=== PATIENT | male | born 1955 | race Caucasian/White ===

== ENCOUNTER → 2018-12-12 | Day surgery (SDC) | payer BC ==
[2018-11-22 15:13] LABS: BASOPHILS % 0.8 % (0.0-1.0); EOSINOPHILS # (AUTO) 0.3 (0.0-0.4); EOSINOPHILS % 5.9 % (0.0-6.0); HEMATOCRIT 43.6 % (38.2-49.6); HEMOGLOBIN 14.5 g/dL (14.0-18.0); LYMPHOCYTES # (AUTO) 1.6 (1.0-3.2); MEAN CORPUSCULAR HEMOGLOBIN 31.5 pg (28-32); MEAN CORPUSCULAR HGB CONC 33.3 g/dL (31-35); MEAN CORPUSCULAR VOLUME 94.6 fL (81-99); MONOCYTES # (AUTO) 0.4 (0.2-0.8); MONOCYTES % 8.2 % (4.4-11.3); NEUTROPHILS # (AUTO) 2.8 (2.1-6.9); NEUTROPHILS % 53.7 % (38.7-80.0); PLATELET COUNT 204 x10e3/uL (140-360); RED BLOOD COUNT 4.61 x10e6/uL (4.3-5.7); RED CELL DISTRIBUTION WIDTH 12.5 % (11.7-14.4)
[2018-11-22 15:25] LABS: INR 0.86; PROTHROMBIN TIME 12.2 seconds (11.9-14.5)
[2018-11-22 15:26] LABS: PARTIAL THROMBOPLASTIN TIME 33.5 seconds (23.8-35.5)
[2018-11-22 15:32] LABS: ALANINE AMINOTRANSFERASE 37 IU/L (0-55); ALBUMIN 3.9 g/dL (3.5-5.0); ALBUMIN/GLOBULIN RATIO 1.3 (0.8-2.0); ALKALINE PHOSPHATASE 57 IU/L (40-150); ANION GAP 13.7 mmol/L (8-16); BLOOD UREA NITROGEN 11 mg/dL (7-26); BUN/CREATININE RATIO 13 (6-25); CALCIUM 9.2 mg/dL (8.4-10.2); CARBON DIOXIDE 25 mmol/L (22-29); CHLORIDE 101 mmol/L (98-107); CREATININE, SERUM 0.86 mg/dL (0.72-1.25); EST GLOMERULAR FILTRATION RATE > 60 ML/MIN (60-); GLUCOSE 85 mg/dL (74-118); POTASSIUM 3.7 mmol/L (3.5-5.1); SODIUM 136 mmol/L (136-145)
[~2018-12-12] MED LIST: ASPIR 8181 MG PO; CALCIUM PO; FENTANYL CITRATE/PF 100MCG/2 ML INJ ONE; FISH OIL 1,0001 EAC2 PO; LEVOTHYROXINE50 MCG PO; LIDOCAINE HCL 2% LOCAL INJ 5 ML SDV VIAL INJ ONE; MIDAZOLAM HCL 2 MG/2 ML VIAL ONE; MULTI-VITAMIN1 EACH PO; VIT C PO
[2018-12-12 14:10] VITALS: BP 127/71
--- OUTSIDE RECORDS SUMMARY | 2018-12-13 10:17 | XMS REPORT ---
Author Organization Unknown Address [address] [place] [address] Phone [phone] Care Team Providers Care Pearl Hand Name Role Phone KT BELLAMY MD 3 [phone] Allergies Code Code System Name Reaction Severity Status Onset NKDA Medications Name Status Start Date Stop Date calcium 1 TAB A DAY Active Not available levothyroxine 50 mcg tablet TAKE ONE TABLET BY MOUTH ONCE DAILY Active Not available Longs Adult Low Strength ASA 81 mg tablet,delayed release Take 1 tablet every day by oral route. Active Not available meloxicam 15 mg tablet Take 1 tablet every day by oral route as needed for 30 days. Active Not available triamcinolone acetonide 0.5 % topical ointment APPLY A THIN LAYER TO THE AFFECTED AREA(S) BY TOPICAL ROUTE 2 TIMES PER DAY FOR 14 DAYS Completed 12/21/2016 Vitamin C 1 tab a day Active Not available vitamin E 1 TAB A DAY Active Not available Problems Name Status Onset Date Source Hypothyroidism Unknown 06/13/2016 Hypothyroidism Active 06/22/2017 Procedures Date Name Performed by 06/04/2013 Colonoscopy Information not available 06/04/1996 Vasectomy Information not available 06/13/2016 Electrocardiogram [facility] [address] [place] [address] (Work Place) 12/21/2016 US, Testicle [facility] [place] [address] [facility] [address] [address] (Work Place) 06/22/2017 XR, Shoulder, 2 or More View [facility] [address] [facility] [address] [facility] [address] [place] [address] (Work Place) Lab Results Date Name Specimen Result Interpretation Description Value Range Status Address 06/22/2017 CBC W/ Auto Diff Wbc 5.48 x10*3/L 4.23-9.07 x10*3/L Final [facility]: [address] [place] Rbc 5.29 10*12/L 4.63-6.08 10*12/L Final [facility]: [address] [place] Hemoglobin 16.80 g/dL 13.70-17.50 g/dL Final [facility] [address] Hemat[facility]rit 49.5 % 40.1-51.0 % Final [facility] [address] [facility] Mcv 93.6 fL 80.0-100.[address] [facility] [address] [facility] Mch 31.8 pg 25.7-32.[address] [facility] [address] [facility] Mchc 33.9 g/dL 32.3-36.5 g/dL Final [facility] [address] [facility] RDW-SD 42.3 fL 35.1-43.[address] [facility] [address] [facility] Platelet Count 215.0 k/uL 163.0-337.0 k/uL Final [facility]: [address] [place] High Mpv 11.8 fL 7.5-11.[address] [facility]: [address] [place] Neut% 53.2 % 34.0-67.9 % Final [facility] [address] Lymph% 29.7 % 21.8-53.1 % Final [facility] [address] [facility] Mon% 8.9 % 5.3-12.2 % Final [facility] [address] [facility] High Eos% 7.7 % 0.8-7.0 % Final [facility] [address] [facility] Baso% 0.5 % 0.2-1.2 % Final [facility] [address] [facility] Neut# 2.9 x10*3/L 1.8-5.4 x10*3/L Final [facility] [address] [facility] Lymph# 1.6 x10*3/L 1.3-3.6 x10*3/L Final [facility]: [address] [place] Mon# 0.5 x10*3/L 0.3-0.8 x10*3/L Final [facility]: [address] [place] Eos# 0.42 x10*3/L 0.04-0.54 x10*3/L Final [facility]: [address] [place] Baso# 0.03 x10*3/L 0.01-0.08 x10*3/L Final [facility] [address] 06/22/2017 CMP, Serum or Plasma High Alt 59 U/L 0-55 U/L Final [facility]: [address] [place] [address] High Ast 51 U/L 5-34 U/L Final [facility]: [address] Bun 10.6 mg/dL 8.4-25.7 mg/dL Final [facility]: [address] Alk Phos 70 unit/L 40-150 unit/L Final [facility]: [address] [place] [address] Glucose 92 mg/dL 70-99 mg/dL Final [facility]: [address] Albumin 4.1 g/dL 3.5-5.0 g/dL Final [facility]: [address] Creatinine 0.95 mg/dL 0.72-1.25 mg/dL Final [facility]: [address] eGFR Non- >60 mL/min/1.73m2 >60 mL/min/1.73m2 Final [facility]: [address] Total Bilirubin 1.0 mg/dL 0.2-1.2 mg/dL Final [facility]: [address] eGFR - >60 mL/min/1.73m2 >60 mL/min/1.73m2 Final [facility]: [address] Sodium 140 mEq/L 136-145 mEq/L Final [facility]: [address] Potassium 4.7 mEq/L 3.5-5.1 mEq/L Final [facility]: [address] Chloride 102 mmol/L 98-107 mmol/L Final [facility]: [address] Total Protein 7.7 g/dL 6.4-8.3 g/dL Final [facility]: [address] Calcium 9.6 mg/dL 8.8-10.0 mg/dL Final [facility]: [address] Co2 30.3 mmol/L 23.0-31.0 mmol/L Final [facility]: [address] Anion Gap [address] [facility]: [address] [place] [address], [place] 06/22/2017 Lipid Panel, Serum Hdl 60 mg/dL 40-60 mg/dL Final [facility]: [address] Triglyceride 99 mg/dL 0-149 mg/dL Final [facility]: [address] VLDL Calc. 20 mg/dL Final [facility]: [address] cholesterol/HDL Ratio 4.1 mg/dL Final [facility]: [address] High non-HDL Cholesterol Calc. 185 mg/dL 0-160 mg/dL Final [facility]: [address] High Cholesterol 245 mg/dL 0-199 mg/dL Final [facility]: [address] High LDL Calc. 165 mg/dL 0-130 mg/dL Final [facility]: [address] 06/22/2017 TSH, Serum or Plasma Tsh 2.203 uIU/mL 0.350-4.940 uIU/mL Final [facility]: [address] 06/22/2017 PSA, Serum or Plasma PSA, Total 0.60 NG/mL <4.00 NG/mL Final [facility]: [address] 06/13/2016 CBC W/ Auto Diff Wbc 6.22 x10*3/L 2.90-10.50 x10*3/L Final [facility] [address] [facility] Rbc 4.74 10*12/L 3.61-5.21 10*12/L Final [facility] [address] [facility] Hemoglobin 14.9 g/dL 12.3-17.5 g/dL Final [facility] [address] [facility] Hematocrit 44.1 % 37.1-51.3 % Final [facility] [address] [facility] Mcv 93.0 fL 79.4-101.[address] [facility] [address] [facility] Mch 31.4 pg 26.2-34.[address] [facility] [address] [facility] Mchc 33.8 g/dL 30.2-35.6 g/dL Final [facility] [address] [facility] RDW-SD 41.7 fL 35.8-49.[address] [facility]: [address] [place] [address] Platelet Count 219.0 k/uL 118.8-347.0 k/uL Final [facility] [address] [facility] Mpv 11.5 fL 8.4-13.[address] [facility] [address] [facility] Neut% 64.3 % 39.1-76.5 % Final [facility] [address] [facility] Lymph% 24.0 % 13.8-46.8 % Final [facility] [address] [facility] Mon% 7.2 % 4.6-14.4 % Final [facility] [address] [facility] Eos% 4.200 % 0.001-7.300 % Final [facility] [address] [facility] Baso% 0.3 % 0.0-1.5 % Final [facility] [address] [facility] Neut# 4.0 x10*3/L 0.8-7.0 x10*3/L Final [facility]: [address] [facility] [place] Lymph# 1.5 x10*3/L 0.6-3.2 x10*3/L Final [facility]: [address] [facility] [place] Mon# 0.5 x10*3/L 0.2-1.0 x10*3/L Final [facility]: [address] [facility] [place] Eos# 0.26 x10*3/L 0.00-0.51 x10*3/L Final [facility]: [address] [facility] [place] Baso# 0.020 x10*3/L 0.001-0.090 x10*3/L Final [facility] [address] [facility] 06/13/2016 CMP, Serum or Plasma Alt 35.0 U/L 0.0-55.0 U/L Final [facility]: [address] Ast 29.0 U/L 5.0-34.0 U/L Final [facility]: [address] Bun 12.0 mg/dL 8.0-26.0 mg/dL Final [facility]: [address] Alk Phos 59.0 unit/L 40.0-150.0 unit/L Final [facility]: [address] Glucose 82.0 mg/dL 70.0-99.0 mg/dL Final [facility]: [address] Albumin 4.0 g/dL 3.5-5.0 g/dL Final [facility]: [address] Creatinine 0.9 mg/dL 0.7-1.3 mg/dL Final [facility]: [address] eGFR Non- >60 mL/min/1.73m2 >60.0 mL/min/1.73m2 Final [facility]: [address] Total Bilirubin 0.8 mg/dL 0.2-1.2 mg/dL Final [facility]: [address] eGFR - >60 mL/min/1.73m2 >60.0 mL/min/1.73m2 Final [facility]: [address] [place], [place] Sodium 143.0 mEq/L 137.0-144.0 mEq/L Final [facility]: [address] Potassium 4.8 mEq/L 3.5-5.0 mEq/L Final [facility]: [address] Chloride 108.0 mmol/L 101.0-110.0 mmol/L Final [facility]: [address] Total Protein 7.0 g/dL 6.4-8.3 g/dL Final [facility]: [address] Calcium 9.4 mg/dL 8.4-10.2 mg/dL Final [facility]: [address] Co2 26 mmol/L 22-31 mmol/L Final [facility]: [address] Anion Gap 9.[address] [facility]: [address] 06/13/2016 Lipid Panel, Serum High Hdl 64.0 mg/dL 40.0-60.0 mg/dL Final [facility]: [address] [place] [address] Triglyceride 66.0 mg/dL 0.0-149.0 mg/dL Final [facility]: [address] VLDL Calc. 13.2 mg/dL Final [facility]: [address] cholesterol/HDL Ratio 3.2 mg/dL Final [facility]: [address] non-HDL Cholesterol Calc. 143.0 mg/dL 0.0-160.0 mg/dL Final [facility]: [address] High Cholesterol 207.0 mg/dL 0.0-199.0 mg/dL Final [facility]: [address] LDL Calc. 129.8 mg/dL 0.0-130.0 mg/dL Final [facility]: [address] 06/13/2016 TSH, Serum or Plasma Tsh 2.2106 uIU/mL 0.3500-4.9400 uIU/mL Final [facility]: [address] [place] [address], [place] 06/13/2016 PSA, Serum or Plasma PSA, Total 0.55 NG/mL <4.00 NG/mL Final [facility]: [address] [place] [address], [place] 06/03/2015 CBC W/ Auto Diff No observation recorded. [facility]: [address], [place] Urinalysis, Dipstick Color Glucose negative [facility]: [address], [place] Color Bilirubin negative [facility]: [address], [place] Color Ketones negative [facility]: [address], [place] Color Specific [place] 1.005 [facility]: [address], [place] Color Blood negative [facility] [address], [place] Color PH 5.5 [facility]: [address], [place] Color Protein negative [facility]: [address], [place] Color Urobilinogen 0.2 [facility]: [address], [place] Color Nitrites negative [facility]: [address], [place] Color Leukocytes negative [facility]: [address], [place] Electrocardiogram No observation recorded. [facility]: [address], [place] Past Encounters 07/06/2017 Degenerative Joint Disease of Shoulder Region; Influenza Vaccination Kt Gill MD: [address] [facility], [address], [place] [address], Ph. 06/22/2017 Adult Health Examination; Hypothyroidism; Screening for Malignant Neoplasm of Prostate; Shoulder Pain; Body Mass Index 30+ - Obesity Kt Gill MD: [address] [facility], [address], [place] [address], Ph. 12/21/2016 Pain in Testicle Kt Gill MD: [address] [place] [address], Ph. 06/28/2016 Screening for Malignant Neoplasm of Colon; Elevated Blood-pressure Reading without Diagnosis of Hypertension; Atopic Dermatitis Kt Gill MD: [address] [place] [address], Ph. 06/13/2016 Adult Health Examination; Hypothyroidism; Influenza Vaccination; Immunization; Elevated Blood-pressure Reading without Diagnosis of Hypertension Kt Gill MD: [address] [place] [address], Ph. Social History Smoking Status Never Smoker Vaccine List Vaccine Type influenza, injectable, quadrivalent, preservative free 07/06/2017 influenza, seasonal, injectable 06/14/20160.5 mL influenza, unspecified formulation 05/14/2013 zoster 06/14/20160.65 mL Plan of Care Reminders Provider Appointments None recorded. Lab None recorded. Referral None recorded. Procedures None recorded. Surgeries None recorded. Imaging None recorded. Vitals 07/06/2017 10:00AM Est Patient Height Weight BMI Blood Pressure 5 ft 7.6 in 208.6 lbs 32.1 kg/m2 132/90 mm[Hg] 06/22/2017 09:30AM INTERNATIONAL ACCOUNT EXECUTIVE/EST CPX Height Weight BMI Blood Pressure 5 ft 7.6 in 205.6 lbs 31.6 kg/m2 128/97 mm[Hg] 12/21/2016 04:15PM Est Patient Height Weight BMI Blood Pressure 5 ft 7.6 in 202 lbs 31.1 kg/m2 132/80 mm[Hg] 06/28/2016 08:15AM Est Patient Height Weight BMI Blood Pressure 5 ft 7.6 in 196 lbs 30.2 kg/m2 131/92 mm[Hg] 06/13/2016 09:30AM INTERNATIONAL ACCOUNT EXECUTIVE/EST CPX Height Weight BMI Blood Pressure 5 ft 7.6 in 195 lbs 30 kg/m2 (1) 139/103 mm[Hg] (2) 136/94 mm[Hg]
--- OUTSIDE RECORDS SUMMARY | 2018-12-13 10:17 | XMS REPORT | Encounter Summary ---
Author Organization Unknown Address [address] [place] [address] Phone [phone] Care Team Providers Care Mine Administrator Supervisor Name Role Phone Dr. Kt Garner 3 [phone] Becky Ulrichsep OD 240 [phone] Reason for Visit Hypothyroidism Instructions 1. Hypothyroidism levothyroxine 50 mcg tablet TSH, serum or plasma 2. Hyperlipidemia high cholesterol: care instructions lipid panel, serum CMP, serum or plasma 3. Body mass index 30+ - obesity body mass index: care instructions learning about healthy weight 4. Immunization Adacel (Tdap Adolesn/Adult)(PF)2 Lf-(2.5-5-3-5)-5 Lf/0.5 mL IM syringe Shingrix Adjuvant Component (PF) intramuscular suspension 5. Screening for malignant neoplasm of colon colonoscopy referral fecal occult blood, stool 6. Screening for malignant neoplasm of prostate PSA, serum or plasma Discussion Note: None recorded. Plan of Care Reminders Provider Appointments Est Patient 04/04/2019 8:00AM Kt Gill MD Lab Fecal Occult Blood, Stool 10/02/2018 [facility] TSH, Serum or Plasma 10/02/2018 [facility] Lipid Panel, Serum 10/02/2018 [facility] CMP, Serum or Plasma 10/02/2018 [facility] PSA, Serum or Plasma 10/02/2018 [facility] Referral Colonoscopy Referral 10/02/2018 Procedures None recorded. Surgeries None recorded. Imaging None recorded. Medications Name Start Date calcium 1 TAB A DAY levothyroxine 50 mcg tablet TAKE ONE TABLET BY MOUTH ONCE DAILY Longs Adult Low Strength ASA 81 mg tablet,delayed release Take 1 tablet every day by oral route. Vitamin C 1 tab a day vitamin E 1 TAB A DAY Medications Administered None recorded. Vitals Height Weight BMI Blood Pressure 5 ft 7.6 in 197 lbs 30.3 kg/m2 (1) 140/96 mm[Hg] (2) 138/86 mm[Hg] Lab Results None recorded. Allergies Code Code System Name Reaction Severity Status Onset NKDA Problems Name Status Onset Date Source Hypothyroidism Active 06/22/2017 Hyperlipidemia Active 04/04/2018 Procedures Date Name Performed by 09/09/2010 Colonoscopy Information not available 06/04/1996 Vasectomy Information not available Vaccine List Vaccine Type influenza, injectable, quadrivalent, preservative free 07/06/2017 04/04/20180.5 mL influenza, seasonal, injectable 06/14/20160.5 mL influenza, unspecified formulation 05/14/2013 Tdap 10/02/20180.5 mL zoster 06/14/20160.65 mL zoster subunit 10/02/20180.5 mL Social History Smoking Status Never Smoker Past Encounters 10/02/2018 Hypothyroidism; Hyperlipidemia; Body Mass Index 30+ - Obesity; Immunization; Screening for Malignant Neoplasm of Colon; Screening for Malignant Neoplasm of Prostate Kt Gill MD: [address] [place] [address], Ph. History of Present Illness Care Management - Acquired Hypothyroidism Reported By: Patient Care Management: Prognosis: expected outcome: stabilize. Diagnosis Summary: hypothyroidism of unknown etiology. Medication Education: understands administration, understands effect of concurrent medications, understands missed doses, understands consequences of noncompliance Interim History: Associated Symptoms: no abnormal weight gain, no tiredness, no dry skin, no cold intolerance, no constipation, no diarrhea, no goiter Review of Systems Comprehensive General Adult ROS Reported By: Patient Constitutional: Constitutional: no fever Eyes: Eyes: no vision change ENMT: Ears: no ear pain. Nose: no sinus problems. Mouth/Throat: no sore throat Cardiovascular: Cardiovascular: no chest pain, no palpitations, no lightheadedness Respiratory: Respiratory: no cough, no wheezing, no shortness of breath Gastrointestinal: Gastrointestinal: no abdominal pain, no nausea, no vomiting, no constipation, no diarrhea Musculoskeletal: Musculoskeletal: no muscle aches, no swelling in the extremities Neurologic: Neurologic: no loss of consciousness, no headaches Psychiatric: Psych: no depression, no alcohol abuse, no anxiety, no suicidal thoughts Endocrine: Endocrine: no fatigue Physical Exam General Adult Exam (male) Reported By: Patient Constitutional: General Appearance: healthy-appearing, obese. Level of Distress: NAD. Ambulation: ambulating normally Psychiatric: Insight: good judgement. Mental Status: active and alert, normal mood, normal affect. Orientation: to time, to place, to person. Memory: recent memory normal, remote memory normal Eyes: Lids and Conjunctivae: non-injected, no discharge. EOM: EOMI Neck: Neck: trachea midline. Thyroid: no enlargement, non-tender Lungs: Auscultation: breath sounds normal Cardiovascular: Heart Auscultation: RRR, normal S1, normal S2, no murmurs. Neck vessels: no carotid bruits Abdomen: Inspection and Palpation: soft, non-distended, no tenderness, no guarding Musculoskeletal:: Motor Strength and Tone: normal, normal tone. Joints, Bones, and Muscles: normal movement of all extremities. Extremities: no edema Neurologic: Gait and Station: normal gait
== END | disposition home or self-care (01) ==
LOC: OR 13:00
PROVIDERS: ATTEND Internal Medicine
DX: K70.30 Alcoholic cirrhosis of liver without ascites (principal); K29.70 Gastritis, unspecified, without bleeding; K64.0 First degree hemorrhoids; K63.89 Other specified diseases of intestine; E03.9 Hypothyroidism, unspecified; F10.10 Alcohol abuse, uncomplicated; Z01.810 Encounter for preprocedural cardiovascular examination; Z01.812 Encounter for preprocedural laboratory examination; Z79.82 Long term (current) use of aspirin
CPT/HCPCS: 36415; 43239; 45378; 80053; 85025; 85610; 85730; 93005; J2001; J2250; J3010